=== PATIENT | female | born 1990 | race Caucasian/White ===

== ENCOUNTER 2019-12-14 18:25 | Inpatient (IN) | payer OTHER ==
[~2019-12-14] VITALS: Ht 149.9 cm; Wt 82.0 kg
[2019-12-14] MEDS: LACTATED RINGERS 1,000 ML IV SCH ×2 (18:15→21:46)
[2019-12-14] MEDS ORDERED: OXYTOCIN 30U/ 0.9% NaCL 500ML 500 ML IV PRN (18:26)
[2019-12-14] MEDS ORDERED: OXYTOCIN 30U/ 0.9% NaCL 500ML 500 ML IV ONE (18:26)
[2019-12-14] MEDS: D5%-LACTATED RINGERS 1,000 ML IV SCH (18:26)
[2019-12-14] MEDS ORDERED: TERBUTALINE 1 MG/ML, 1ML SQ PRN (18:30)
[2019-12-14] MEDS ORDERED: CALCIUM CARBONATE 500 MG TAB.CHEW PO PRN (18:30)
[2019-12-14] MEDS ORDERED: SODIUM CITRATE/CITRIC ACID 30 ML UDC PO PRN (18:30)
[2019-12-14] MEDS ORDERED: TERBUTALINE 1 MG/ML, 1ML IVPush PRN (18:30)
[2019-12-14] MEDS ORDERED: FENTANYL PF 100 MCG/2ML IV PRN (18:30)
[2019-12-14] MEDS ORDERED: MISOPROSTOL 25 MCG TABLET VG PRN (18:30)
[2019-12-14] MEDS ORDERED: METOCLOPRAMIDE 5 MG/ML, 2ML IVPush PRN (18:30)
[2019-12-14] MEDS ORDERED: FENTANYL PF 100 MCG/2ML IVPush PRN (18:30)
[2019-12-14] MEDS ORDERED: ONDANSETRON 2MG/ML, 2ML IVPush PRN ×2 (18:30→23:30)
[2019-12-14] MEDS ORDERED: NEWBORN KIT ONE ×2 (18:39→18:46)
[2019-12-14] MEDS ORDERED: LIDOCAINE 1%, 20ML ONE ×2 (18:46→18:47)
[2019-12-14] MEDS ORDERED: MISOPROSTOL 200 MCG TABLET ONE (18:46)
[2019-12-14 18:47] LABS: BASOPHILS # (AUTO) 0.04 x10^3/uL (0-0.1); BASOPHILS % (AUTO) 0 % (0-1); EOSINOPHILS # (AUTO) 0.02 x10^3/uL (0-0.4); EOSINOPHILS % (AUTO) 0 % (1-7); LYMPHOCYTES # (AUTO) 2.21 x10^3/uL (1-3.4); LYMPHOCYTES % (AUTO) 17 % (22-44); MD NO; MEAN CORPUSCULAR HEMOGLOBIN 27.9 pg (27.0-34.8); MEAN CORPUSCULAR HGB CONC 32.9 g/dL (32.4-35.8); MEAN CORPUSCULAR VOLUME 84.8 fL (80-100); MEAN PLATELET VOLUME 7.8 fL (7.4-10.4); MONOCYTES # (AUTO) 0.76 x10^3/uL (0.2-0.8); MONOCYTES % (AUTO) 6 % (2-9); NEUTROPHILS # (AUTO) 9.94 x10^3/uL (1.8-6.8); NEUTROPHILS % (AUTO) 77 % (42-75); PLATELET COUNT 354 x10^3/uL (130-400); RED BLOOD COUNT 4.49 x10^6/uL (3.82-5.3); RED CELL DISTRIBUTION WIDTH 16.1 % (9.6-15.2)
[2019-12-14] MEDS ORDERED: OXYTOCIN 30U/ 0.9% NaCL 500ML 500 ML ONE (18:47)
[2019-12-14] MEDS ORDERED: MISOPROSTOL 25 MCG TABLET ONE (18:49)
[2019-12-14 19:30] LABS: ALBUMIN 2.4 g/dL (3.4-5.0); ANION GAP 11 mmol/L (5-15); CHLORIDE 107 mmol/L (98-107)
[2019-12-14 19:33] LABS: ALANINE AMINOTRANSFERASE 16 U/L (12-78); ALKALINE PHOSPHATASE 131 U/L (45-117); BILIRUBIN,TOTAL 0.5 mg/dL (0.2-1.0); CREATININE 0.62 mg/dL (0.55-1.02); TOTAL PROTEIN 6.7 g/dL (6.4-8.2)
[2019-12-14 19:34] LABS: BILIRUBIN, DIRECT < 0.1 mg/dL (0.1-0.2)
[2019-12-14 20:00] VITALS: BP 116/70
[2019-12-14] MEDS ORDERED: FENTANYL/BUPIV./NS/PF 250 ML EPIDCONT SCH ×2 (22:00→23:03)
[2019-12-14] MEDS ORDERED: LACTATED RINGERS 1,000 ML IVBOLUS PRN ×2 (22:00→23:30)
[2019-12-14] MEDS ORDERED: BUPIVACAINE 0.25% ONE (22:19)
[2019-12-14] MEDS ORDERED: FENTANYL/BUPIV./NS/PF 250 ML EPIDCONT ONE (22:19)
[2019-12-14] MEDS ORDERED: LACTATED RINGERS 1,000 ML IV SCH (23:03)
[2019-12-14] MEDS ORDERED: EPHEDRINE 50 MG/ML, 1ML IVPush PRN (23:30)
[2019-12-14] MEDS ORDERED: NALOXONE 0.4 MG/ML, 1ML IVPush PRN (23:30)
[2019-12-14] MEDS ORDERED: DIPHENHYDRAMINE 50 MG/ML, 1ML IVPush PRN (23:30)
[2019-12-14 23:31] LABS: MICROSCOPIC INDICATED
[2019-12-15] MEDS: D5%-LACTATED RINGERS 1,000 ML IV SCH (07:15)
[2019-12-15] MEDS ORDERED: ACETAMINOPHEN 500 MG TABLET ONE (09:57)
[2019-12-15] MEDS ORDERED: AMPICILLIN 2 GM in SODIUM CHLORIDE 0.9% 100 ML IV SCH (10:00)
[2019-12-15] MEDS ORDERED: ACETAMINOPHEN 500 MG TABLET PO ONE (10:00)
[2019-12-15] MEDS ORDERED: AZITHROMYCIN 500 MG in SODIUM CHLORIDE 0.9% 250 ML IV ONE (11:30)
[2019-12-15] MEDS ORDERED: METOCLOPRAMIDE 5 MG/ML, 2ML IV ONE (11:30)
[2019-12-15] MEDS ORDERED: LACTATED RINGERS 1,000 ML IVBOLUS ONE (11:30)
[2019-12-15] MEDS ORDERED: SODIUM CITRATE/CITRIC ACID 30 ML UDC PO ONE (11:30)
[2019-12-15] MEDS ORDERED: METOCLOPRAMIDE 5 MG/ML, 2ML ONE (11:31)
[2019-12-15] MEDS ORDERED: OXYTOCIN 30U/ 0.9% NaCL 500ML 500 ML IV SCH (11:33)
[2019-12-15] MEDS ORDERED: LACTATED RINGERS 1,000 ML IV SCH ×2 (11:33)
[2019-12-15] MEDS ORDERED: LIDOCAINE/MPF 2%-EPI 1:200K, 20 ML ONE (11:47)
[2019-12-15] MEDS ORDERED: morphine SULFATE/PF 0.5 MG/ML, 10ML ONE (11:53)
[2019-12-15] MEDS ORDERED: OXYTOCIN 10 UNITS/ML, 1ML ONE (11:56)
[2019-12-15] MEDS ORDERED: KETOROLAC 30 MG/1 ML ONE (11:56)
[2019-12-15] MEDS ORDERED: SODIUM CHLORIDE 0.9% PF 10ML ONE (11:56)
[2019-12-15] MEDS ORDERED: CEFAZOLIN 1,000 MG ONE (11:56)
[2019-12-15] MEDS ORDERED: DEXAMETHASONE 4 MG/ML, 1ML ONE (11:56)
[2019-12-15] MEDS ORDERED: PHENYLEPHRINE 10 MG/ML ONE (11:56)
[2019-12-15] MEDS ORDERED: WATER-INJECTION,STERILE 10 ML IV ONE (11:56)
[2019-12-15] MEDS ORDERED: ONDANSETRON 2MG/ML, 2ML ONE (11:56)
[2019-12-15] MEDS ORDERED: ONDANSETRON 2MG/ML, 2ML IV PRN (12:00)
[2019-12-15] MEDS ORDERED: DIPH,PERTUSS(ACELL),TET VAC/PF NC IM-VACC PRN (12:00)
[2019-12-15] MEDS ORDERED: ACETAMINOPHEN 325 MG TABLET PO PRN ×2 (12:00)
[2019-12-15] MEDS ORDERED: CALCIUM CARBONATE 500 MG TAB.CHEW PO PRN (12:00)
[2019-12-15] MEDS ORDERED: MORPHINE SULFATE 4 MG/ML, 1ML IVPush PRN (12:00)
[2019-12-15] MEDS ORDERED: MEASLES,MUMPS&RUBELLA VACC/PF 0.5 ML SQ-VACC PRN (12:00)
[2019-12-15] MEDS ORDERED: OXYcodone/APAP 5/325MG TABLET PO PRN ×2 (12:00)
[2019-12-15] MEDS ORDERED: MISOPROSTOL 200 MCG TABLET PR PRN (12:00)
[2019-12-15] MEDS ORDERED: OXYcodone 5 MG/5 ML ORAL.SOL UDC PO PRN ×2 (14:00→14:30)
[2019-12-15] MEDS ORDERED: OXYcodone 5 MG/5 ML ORAL.SOL UDC ONE (14:01)
[2019-12-15 15:14] VITALS: BP 92/62
[2019-12-15] MEDS: AMPICILLIN 2 GM in SODIUM CHLORIDE 0.9% 100 ML IV SCH ×2 (16:16→22:00)
[2019-12-15] MEDS: KETOROLAC 30 MG/1 ML IV SCH (18:32)
[2019-12-15] MEDS ORDERED: DIPHENHYDRAMINE 50 MG/ML, 1ML IV PRN (19:30)
[2019-12-15] MEDS ORDERED: ONDANSETRON 2MG/ML, 2ML IVPush PRN (19:30)
[2019-12-15] MEDS ORDERED: NALOXONE 0.4 MG/ML, 1ML IV PRN (19:30)
[2019-12-15] MEDS ORDERED: KETOROLAC 30 MG/1 ML IVPush SCH (19:30)
[2019-12-15] MEDS ORDERED: NO SEDATIVES, TRANQUILIZERS OR ANTIEMETICS XX SCH (19:30)
[2019-12-15] MEDS ORDERED: EPHEDRINE 50 MG/ML, 1ML IVPush PRN (19:30)
[2019-12-15 20:00] VITALS: BP 107/73
[2019-12-15 23:33] VITALS: BP 110/71
[2019-12-16] MEDS: KETOROLAC 30 MG/1 ML IV SCH ×2 (00:12→06:13)
[2019-12-16] MEDS: OXYcodone/APAP 5/325MG TABLET PO PRN ×5 (03:23→23:48)
[2019-12-16 03:30] VITALS: BP 94/60
[2019-12-16 03:33] LABS: MEAN CORPUSCULAR HEMOGLOBIN 28.1 pg (27.0-34.8); MEAN CORPUSCULAR HGB CONC 33.1 g/dL (32.4-35.8); MEAN CORPUSCULAR VOLUME 84.9 fL (80-100); MEAN PLATELET VOLUME 7.8 fL (7.4-10.4); PLATELET COUNT 268 x10^3/uL (130-400); RED BLOOD COUNT 3.67 x10^6/uL (3.82-5.3); RED CELL DISTRIBUTION WIDTH 16.2 % (9.6-15.2)
[2019-12-16] MEDS: AMPICILLIN 2 GM in SODIUM CHLORIDE 0.9% 100 ML IV SCH ×3 (03:45→11:00)
[2019-12-16 04:40] LABS: BASOPHILS # (AUTO) 0.01 x10^3/uL (0-0.1); BASOPHILS % (AUTO) 0 % (0-1); EOSINOPHILS % (AUTO) 0 % (1-7); LYMPHOCYTES # (AUTO) 2.16 x10^3/uL (1-3.4); LYMPHOCYTES % (AUTO) 8 % (22-44); MD SCAN; MONOCYTES # (AUTO) 1.39 x10^3/uL (0.2-0.8); MONOCYTES % (AUTO) 5 % (2-9); NEUTROPHILS # (AUTO) 23.32 x10^3/uL (1.8-6.8); NEUTROPHILS % (AUTO) 87 % (42-75)
[2019-12-16 08:00] VITALS: BP 96/64
[2019-12-16] MEDS: DOCUSATE 100 MG CAPSULE PO PRN ×2 (08:00→19:46)
[2019-12-16] MEDS: PRENATAL VIT/IRON/FA 1 EACH TABLET PO SCH (09:00)
[2019-12-16] MEDS: IBUPROFEN 600 MG TABLET PO PRN ×2 (13:12→19:46)
[2019-12-16 14:00] VITALS: BP 99/67
[2019-12-16 19:23] VITALS: BP 91/58
[2019-12-17] MEDS: IBUPROFEN 600 MG TABLET PO PRN ×4 (02:05→20:29)
[2019-12-17] MEDS: OXYcodone/APAP 5/325MG TABLET PO PRN (05:27)
[2019-12-17 06:04] LABS: MEAN CORPUSCULAR HEMOGLOBIN 28.1 pg (27.0-34.8); MEAN CORPUSCULAR HGB CONC 32.8 g/dL (32.4-35.8); MEAN CORPUSCULAR VOLUME 85.7 fL (80-100); MEAN PLATELET VOLUME 7.9 fL (7.4-10.4); PLATELET COUNT 284 x10^3/uL (130-400); RED BLOOD COUNT 3.49 x10^6/uL (3.82-5.3); RED CELL DISTRIBUTION WIDTH 16.4 % (9.6-15.2)
[2019-12-17 06:44] LABS: BASOPHILS # (AUTO) 0.06 x10^3/uL (0-0.1); BASOPHILS % (AUTO) 0 % (0-1); EOSINOPHILS # (AUTO) 0.17 x10^3/uL (0-0.4); EOSINOPHILS % (AUTO) 1 % (1-7); LYMPHOCYTES # (AUTO) 2.93 x10^3/uL (1-3.4); LYMPHOCYTES % (AUTO) 19 % (22-44); MD SCAN; MONOCYTES # (AUTO) 0.74 x10^3/uL (0.2-0.8); MONOCYTES % (AUTO) 5 % (2-9); NEUTROPHILS # (AUTO) 11.99 x10^3/uL (1.8-6.8); NEUTROPHILS % (AUTO) 75 % (42-75)
[2019-12-17 07:40] VITALS: BP 99/66
[2019-12-17] MEDS: DOCUSATE 100 MG CAPSULE PO PRN ×2 (08:15→20:28)
[2019-12-17] MEDS: PRENATAL VIT/IRON/FA 1 EACH TABLET PO SCH (08:15)
[2019-12-17] MEDS ORDERED: OXYcodone IR 5MG TABLET PO PRN (14:00)
[2019-12-17] MEDS: OXYcodone IR 5MG TABLET PO PRN ×2 (14:11→18:17)
[2019-12-17] MEDS: ACETAMINOPHEN 500 MG TABLET PO SCH ×2 (15:17→20:29)
[2019-12-17] MEDS: SIMETHICONE 80 MG CHEW TAB PO PRN (15:21)
[2019-12-17 20:07] VITALS: BP 107/72
[2019-12-18] MEDS: IBUPROFEN 600 MG TABLET PO PRN ×2 (03:09→12:29)
[2019-12-18] MEDS: ACETAMINOPHEN 500 MG TABLET PO SCH ×2 (03:09→09:12)
[2019-12-18] MEDS: PRENATAL VIT/IRON/FA 1 EACH TABLET PO SCH (08:10)
[2019-12-18] MEDS: DOCUSATE 100 MG CAPSULE PO PRN (08:10)
[2019-12-18] MEDS: SIMETHICONE 80 MG CHEW TAB PO PRN (08:11)
[2019-12-18 08:15] VITALS: BP 118/77
[2019-12-18] MEDS: OXYcodone IR 5MG TABLET PO PRN ×2 (08:15→12:30)
[2019-12-18] MEDS ORDERED: IBUP-1222 PO (08:18)
[2019-12-18] MEDS ORDERED: OXYC-302 PO (08:18)
== END 2019-12-18 12:50 | disposition home or self-care (01) | DRG 788 ==
LOC: LDOP 18:25 → LDIP 18:26 → 2NW 12-15 14:52
PROVIDERS: ADMIT Obstetrics & Gynecology; ATTEND Obstetrics & Gynecology
PROC: 10D00Z1 Extraction of Products of Conception, Low, Open Approach (ICD-10-PCS; principal; 2019-12-15)
DX: O69.81X0 Labor and delivery complicated by cord around neck, without compression, not applicable or unspecified (principal); O13.4 Gestational [pregnancy-induced] hypertension without significant proteinuria, complicating childbirth; E03.9 Hypothyroidism, unspecified; O99.284 Endocrine, nutritional and metabolic diseases complicating childbirth; Z3A.40 40 weeks gestation of pregnancy; Z37.0 Single live birth; O64.0XX0 Obstructed labor due to incomplete rotation of fetal head, not applicable or unspecified; Z20.828 Contact with and (suspected) exposure to other viral communicable diseases
CPT/HCPCS: 36415; J7121; 80053; 81001; 82248; 82570; 84156; 84550; 85025; 86592; 86850; 86900; 87070; 87075; 87205; 87635; 88307; G0378; J0290; J0456; J0690; J1100; J1885; J2274; J2405; J2370; J2590; J2765; J7050; J7120